=== PATIENT | female | born 1995 | race Asian ===

== ENCOUNTER → 2016-12-19 | Outpatient (CLI) | payer OTHER ==
[~2016-12-19] MED LIST: FERR-74 PO; IBUP-1773 PO; PREN1TAB86 PO
--- NOTE | 2016-12-19 17:29 | Diagnostic Imaging Report ---
EXAMINATION: OB ultrasound. INDICATION: Concern for growth restriction. FINDINGS: heart rate is 150 beats per minute. The placenta is to the left of the uterus. No placenta previa. The amniotic fluid index is 15 cm. The growth parameters are: Biparietal diameter: 37 weeks and 5 days Head circumference: 39 weeks and 5 days Abdominal circumference: 35 weeks and 2 days Femur length: 35 weeks and 1 day These average at: 37 weeks and 0 days. Based on MISA of 12/27/2016 assigned by the doctor's office, the current gestational age would be 38 weeks and 6 days. Please note that the abdominal circumference and femur length are both below 2 standard deviations at -2.24 AC and -2.44 FL. Estimated weight is 2.8 kg. Please note that MISA based on first trimester ultrasound, however, would be 12/21/2016. IMPRESSION: The abdominal circumference and the femur length are below 2 standard deviations compared to gestational age using the assigned MISA provided of 12/27/2016. Dictated by: Dictated on workstation # [id number]
== END ==
LOC: RAD 15:22
PROVIDERS: ATTEND Family Medicine
DX: Z34.82 Encounter for supervision of other normal pregnancy, second trimester (principal)
CPT/HCPCS: 76816

== ENCOUNTER 2016-12-22 16:18 | Inpatient (IN) | payer OTHER ==
[2016-12-22] VITALS (27 sets, daily range): BP systolic 104–127; BP diastolic 57–90
[~2016-12-22] VITALS: Ht 167.6 cm; Wt 70.8 kg
[2016-12-22] MEDS ORDERED: D5 LR IV SOLUTION 1,000 ML IV SCH (16:34)
[2016-12-22] MEDS ORDERED: PREN1TAB86 PO (16:36)
[2016-12-22] MEDS ORDERED: FERR-74 PO (16:37)
[2016-12-22] MEDS ORDERED: MINERAL OIL CONCENTRATE 99.9% 15 ML UDC TOP PRN (16:45)
[2016-12-22 17:52] LABS: BASOPHILS % (AUTO) 0 % (0-10); EOSINOPHILS # (AUTO) 0.1 10^3/uL (0.0-0.3); EOSINOPHILS % (AUTO) 1 % (0-10); LYMPHOCYTES # (AUTO) 2.4 X 10^3 (1.0-4.0); LYMPHOCYTES % (AUTO) 14 % (12-44); MEAN CORPUSCULAR HEMOGLOBIN 24 PG (25-34); MEAN CORPUSCULAR HGB CONC 31 G/DL (32-36); MEAN CORPUSCULAR VOLUME 78 FL (80-99); MEAN PLATELET VOLUME 10.1 FL (7.4-10.4); MONOCYTES # (AUTO) 0.8 X 10^3 (0.0-1.0); MONOCYTES % (AUTO) 5 % (0-12); NEUTROPHILS # (AUTO) 13.9 X 10^3 (1.8-7.8); NEUTROPHILS % (AUTO) 81 % (42-75); PLATELET COUNT 390 10^3/uL (130-400); RED BLOOD COUNT 3.77 10^6/uL (4.35-5.85); WHITE BLOOD COUNT 17.2 10^3/uL (4.3-11.0)
[2016-12-22] MEDS ORDERED: SUFENTA 0.6MCG/ML BUPIVA 0.125 100 ML ONE (18:20)
[2016-12-22] MEDS ORDERED: fentaNYL INJECTION 100 MCG/2 ML AMP ONE (18:22)
[2016-12-22] MEDS ORDERED: LACTATED RINGERS 1,000 ML IV ONE ×2 (18:52)
[2016-12-22] MEDS ORDERED: ONDANSETRON 4 MG/2 ML (SDV) Z0FRAN IV PRN (19:00)
[2016-12-22] MEDS ORDERED: EPIDURAL (SUFENTA 0.6MCG/ML BUPIVA 0.125%) 100 ML BAG EPI PRN (19:00)
[2016-12-22] MEDS ORDERED: NALOXONE 0.4 MG/ML 1 ML (NARCAN) VIAL IV PRN (19:00)
[2016-12-22] MEDS ORDERED: fentaNYL INJECTION 100 MCG/2 ML AMP INJ ONE (19:00)
[2016-12-22] MEDS ORDERED: OXYTOCIN/NORMAL SALINE 500 ML IV SCH (19:07)
--- NOTE | 2016-12-22 20:06 | History & Physical-OB ---
OB - Chief Complaint & HPI Date Date of Admission: Date of Admission: Dec 22, 2016 at 16:32 Chief Complaint/History OB-Reason for Admission/Chief: Rupture of Membranes Hx : 2 Hx Para: 1 Expected Date of Delivery: Dec 27, 2016 Gestational Age in Weeks: 39 Gestational Age in Days: 2 Other reason for admission: ROM at home prior to presenting to L&D. History of Labs Blood type A+ RI, Hep B/HIV/RPR negative Glucola wnl GBS neg Allergies and Home Medications Allergies Coded Allergies: No Known Drug Allergies (Unverified , 12/22/16) Home Medications Ferrous Sulfate 325 Mg Tablet, 325 MG PO DAILY, (Reported) Vit W-Ca,Fe,FA(<1 mg) 1 Each Tablet, 1 EACH PO DAILY, (Reported) OB - History Hx of Present Care: Yes Ultrasounds: Normal mid trimester US, Abnormal US findings (US 12/19/16 - normal CINDY; possible asymmetrical growth restriction w/ AC and FL 2 SD below GA) Obstetrical Complications: None Medical Complications: None Information Induced Hypertension: No Maternal Gestational Diabetes: No Hemorrhage: No Obstetrical History Hx : 2 Hx Para: 1 Hx # Term Pregnancies: 1 Number of Living Children: 1 Hx Multiple Gestation: No Hx Ectopic : No Hx Stillbirth: No Hx Induced Hypertens: Yes (pre-eclampsia w/ 1st ; IOL at 37wk; ASA tx w/ current ) Hx Maternal Gestational Diabet: No Hx Hemorrhage: No Delivery History Hx Dystocia: No Hx Forceps Assisted Delivery: No Hx Vacuum Extraction Assisted: No Hx Placenta Abnormality: No Hx Distress: No Hx Large For Gestational Age I: No Hx Small for Gestational Age I: No Hx Section: No Hx Vaginal Delivery Post C-Sec: No Hx Blood Disorders: No Adverse Rxn to Tranfusion: No Patient Past Medical History hx of pre-eclampsia w/ first Social History/Family History HIV/AIDS: No Recent Infectious Disease Expo: No Sexually Transmitted Disease: No Alcohol Use: Denies Use Recreational Drug Use: No Immunizations Tetanus Booster (TDap): Less than 5yrs (10/25/16) Rubella: immune RPR/VDRL: Negative GBS Status: Negative HBsAG: Negative OB - Admission Exam Physical Exam Vitals: Vital Signs 12/22/16 12/22/16 16:45 19:00 Temp 98.6 Pulse 113 Resp 20 B/P (MAP) 123/70 Pulse Ox 99 O2 Delivery Room Air Abdomen: Gravid Cervical Dilatation: 4cm Effacement: 75% Station: -2 Membranes: Ruptured Amniotic Fluid: Thin Meconium Accelerations: Accelerations Present Contractions on Admission: < 5 Minutes Apart Intensity: Mild Labs Laboratory Tests Test 12/22/16 17:35 Range/Units White Blood Count 17.2 H 4.3-11.0 10^3/uL Red Blood Count 3.77 L 4.35-5.85 10^6/uL Hemoglobin 9.1 L 11.5-16.0 G/DL Hematocrit 29 L 35-52 % Mean Corpuscular Volume 78 L 80-99 FL Mean Corpuscular Hemoglobin 24 L 25-34 PG Mean Corpuscular Hemoglobin Concent 31 L 32-36 G/DL Red Cell Distribution Width 15.0 H 10.0-14.5 % Platelet Count 390 130-400 10^3/uL Mean Platelet Volume 10.1 7.4-10.4 FL Neutrophils (%) (Auto) 81 H 42-75 % Lymphocytes (%) (Auto) 14 12-44 % Monocytes (%) (Auto) 5 0-12 % Eosinophils (%) (Auto) 1 0-10 % Basophils (%) (Auto) 0 0-10 % Neutrophils # (Auto) 13.9 H 1.8-7.8 X 10^3 Lymphocytes # (Auto) 2.4 1.0-4.0 X 10^3 Monocytes # (Auto) 0.8 0.0-1.0 X 10^3 Eosinophils # (Auto) 0.1 0.0-0.3 10^3/uL Basophils # (Auto) 0.0 0.0-0.1 10^3/uL OB - Assessment/Plan/Diagnosis Assessment Assessment: rupture of membranes Plan Plan: Expectant Management (augment w/ Pitocin if necessary) PORSHA LANE DO Dec 22, 2016 20:06
[2016-12-22] MEDS ORDERED: CATHETER FLUSH 10 ML SYR IV SCH (22:00)
[2016-12-23] VITALS (17 sets, daily range): BP systolic 97–121; BP diastolic 57–74
--- NOTE | 2016-12-23 01:24 | OB Labor & Delivery Record ---
L&D History Date of Service Date of Service: Dec 23, 2016 History Expected Date of Delivery: Dec 27, 2016 Gestational Age in Weeks: 39 Hx : 2 Hx Para: 1 Complications Events: Routine care Operative Indications (Cesarea: N/A-Vaginal Delivery Intrapartal Events: None L&D Stage1 Monitors and Tracing Monitor Mode: External Heart Rate: 145 Monitor Accelerations: Uniform Monitor Decelerations: Variable Presentation: Vertex Vital Signs VS - Last 72 Hours, by Label 12/22/16 12/22/16 12/22/16 12/22/16 16:45 17:15 17:30 17:45 Temp 98.6 Pulse 97 94 96 93 Resp 20 20 20 20 B/P (MAP) 116/65 110/69 114/62 117/60 Pulse Ox 97 12/22/16 12/22/16 12/22/16 12/22/16 18:00 18:15 18:30 18:45 Pulse 93 104 106 Resp 20 20 20 20 B/P (MAP) 117/60 117/64 117/63 Pulse Ox 100 98 O2 Delivery Room Air Room Air 12/22/16 12/22/16 12/22/16 12/22/16 19:00 19:15 19:30 19:45 Temp 97.8 Pulse 113 100 99 105 Resp 20 20 20 18 B/P (MAP) 123/70 124/90 117/70 121/70 Pulse Ox 99 98 99 99 O2 Delivery Room Air Room Air Room Air Room Air 12/22/16 12/22/16 12/22/16 12/22/16 20:00 20:15 20:30 20:45 Pulse 107 107 103 99 Resp 18 18 18 18 B/P (MAP) 127/71 118/62 108/66 109/67 Pulse Ox 100 99 99 98 O2 Delivery Room Air Room Air Room Air Room Air 12/22/16 12/22/16 12/22/16 12/22/16 21:00 21:15 21:30 21:45 Temp 98.8 Pulse 96 101 101 105 Resp 18 18 18 18 B/P (MAP) 105/64 127/65 107/61 104/58 Pulse Ox 98 100 97 97 O2 Delivery Room Air Room Air Room Air Room Air 12/22/16 22:00 Temp 99.6 Pulse 111 Resp 18 B/P (MAP) 113/66 Pulse Ox 96 O2 Delivery Room Air Rupture of Membranes Spontaneous Ruture of Membrane: Yes Amniotic Membrane Rupture Time: 1400 Amniotic Membrane Fluid Desc.: Meconium Stained Induction/Anesthesia Epidural Cath Placement - Time: 1833 L&D Stage2 Stage Two Stage II Date: Dec 23, 2016 Stage II Time: 00:52 Stage II Duration: 6 min Monitors and Tracing Monitor Mode: External Heart Rate: 145 Position: Right Occiput Anterior Presentation: Vertex Cord Descript/Complications Complications Nuchal cord x1, body cord Delivery Type Infant Delivery Method: Spontaneous Vaginal Anterior Shoulder: Left Episiotomy/Perineal Laceration Episiotomy Description: Periurethral Extnsion/lac (no repair) Condition of Infant Delivery Delivery Date & Time: 12/23/16 0058 1 minute Comment: 8 5 minute Comment: 9 Condition of Condition of : Living Exam: No Observed Abnormalities Baby Girl, vigorous at w/ spontaneous cry Resuscitation Resuscitation: N/A - Spontaneous Resp L&D Stage3 Stage Three Stage III Date: Dec 23, 2016 Stage III Time: 01:05 Stage III Duration: 7 min Pictocin Pitocin Administration mu/min: 6 Pitocin ml/hr: 6 Pitocin Administration Comment: pitocin started after delivery of the placenta Placenta Delivery Placenta Delivery: Spontaneous Delivery Summary Summary Vaginal blood loss >500ml: No 150mL Attending at delivery: Gordy Condition of Delivery Examined: Cervix Examined Condition of Mother Doing well after delivery Condition of Infant (s) Doing well after delivery PORSHA LANE DO Dec 23, 2016 01:24
[2016-12-23] MEDS ORDERED: OXYTOCIN/NORMAL SALINE 500 ML IV SCH (01:40)
[2016-12-23] MEDS ORDERED: BENZOCAINE/MENTHOL (DERMOPLAST) 56 ML CAN TP PRN (01:45)
[2016-12-23] MEDS ORDERED: WITCH HAZEL(TUCKS) 40 EA JAR TOP PRN (01:45)
[2016-12-23] MEDS: IBUPROFEN 600 MG (MOTRIN) TAB PO SCH ×4 (04:33→23:04)
[2016-12-23] MEDS ORDERED: CATHETER FLUSH 10 ML SYR IV SCH (06:00)
[2016-12-23] MEDS: FERROUS SULF 325 MG (IRON) TAB PO SCH (08:25)
--- NOTE | 2016-12-23 09:48 | Anesthesia-Regional Post-Op ---
Regional Patient Condition Mental Status: Alert, Oriented x3 Circulation: Same as Pre-Op Headache: Absent Sensation: Full Recovery Motor Block: Absent Post Op Complications Complications None Follow Up Care/Instructions Patient Instructions None needed. Anesthesia/Patient Condition Patient is doing well, no complaints, stable vital signs, no apparent adverse anesthesia problems. No complications reported per nursing. PJ CHRISTINE CRNA Dec 23, 2016 09:48
[2016-12-24 05:29] VITALS: BP 98/64
[2016-12-24] MEDS: IBUPROFEN 600 MG (MOTRIN) TAB PO SCH ×3 (05:29→17:10)
[2016-12-24 06:58] LABS: BASOPHILS # (AUTO) 0.1 10^3/uL (0.0-0.1); BASOPHILS % (AUTO) 0 % (0-10); EOSINOPHILS # (AUTO) 0.2 10^3/uL (0.0-0.3); EOSINOPHILS % (AUTO) 2 % (0-10); LYMPHOCYTES # (AUTO) 4.1 X 10^3 (1.0-4.0); LYMPHOCYTES % (AUTO) 29 % (12-44); MEAN CORPUSCULAR HEMOGLOBIN 24 PG (25-34); MEAN CORPUSCULAR HGB CONC 30 G/DL (32-36); MEAN CORPUSCULAR VOLUME 79 FL (80-99); MEAN PLATELET VOLUME 9.6 FL (7.4-10.4); MONOCYTES % (AUTO) 7 % (0-12); NEUTROPHILS % (AUTO) 62 % (42-75); PLATELET COUNT 398 10^3/uL (130-400); RED BLOOD COUNT 3.33 10^6/uL (4.35-5.85); RED CELL DISTRIBUTION WIDTH 15.1 % (10.0-14.5); WHITE BLOOD COUNT 14.5 10^3/uL (4.3-11.0)
[2016-12-24] MEDS: FERROUS SULF 325 MG (IRON) TAB PO SCH (08:40)
[2016-12-24 10:35] VITALS: BP 105/72
[2016-12-24] MEDS ORDERED: IBUP-1773 PO (11:21)
--- NOTE | 2016-12-24 11:22 | Discharge Instructions ---
Discharge Inst-Women's Serv Depart Medications New, Converted or Re-Newed RX: Call to Patients Pharmacy (or may use over the counter) New Medications: Ibuprofen (Ibuprofen) 600 Mg Tablet 600 MG PO Q6H PRN for CRAMPS, #90 TAB Continued Medications: Ferrous Sulfate (Ferrous Sulfate) 325 Mg Tablet 325 MG PO DAILY, TAB Vit W-Ca,Fe,FA(<1 mg) ( Vitamins) 1 Each Tablet 1 EACH PO DAILY, TAB Follow Up/Instructions Goal/Follow Up: Follow-up with Dr. Moreno in 6 weeks. Activity Activity: Activity as Tolerated Nothing Inside Vagina: No Douching, No Ken Caryl, No Tampons Diet Discharge Diet: No Restrictions Symptoms to Report to : Bleeding Excessive, Pain Increased, Fever Over 101 Degrees F, Vaginal Bleeding Increase, Vaginal Discharge Foul, Shortness of Breath For Any Problems or Questions: Contact Your Physician PORSHA LANE DO Dec 24, 2016 11:22
--- NOTE | 2016-12-24 11:24 | Discharge Summary ---
Diagnosis/Chief Complaint Date of Admission Dec 22, 2016 at 16:32 Date of Discharge Dec 24, 2016 Admission Diagnosis Admission Diagnosis 1. at 39w2d w/ SROM Discharge Diagnosis 1. at 39w2d w/ SROM s/p 12/23/16 Discharge Summary-OBS Procedures None. Discharge Physical Examination Allergies: Coded Allergies: No Known Drug Allergies (Unverified , 12/22/16) Vitals & I&Os Vital Sign - Last 12Hours Date Time Temp Pulse Resp B/P (MAP) Pulse Ox O2 Delivery O2 Flow Rate FiO2 12/24/16 10:35 97.0 76 16 105/72 Room Air 12/24/16 05:29 98 General Appearance: Alert, Oriented X3, Cooperative Psych/Mental Status: Mood NL Hospital Course Routine course Labs Laboratory Tests 12/24/16 06:50: White Blood Count 14.5H, Red Blood Count 3.33L, Hemoglobin 8.0L, Hematocrit 26L , Mean Corpuscular Volume 79L, Mean Corpuscular Hemoglobin 24L, Mean Corpuscular Hemoglobin Concent 30L, Red Cell Distribution Width 15.1H, Platelet Count 398, Mean Platelet Volume 9.6, Neutrophils (%) (Auto) 62, Lymphocytes (%) (Auto) 29, Monocytes (%) (Auto) 7, Eosinophils (%) (Auto) 2, Basophils (%) (Auto ) 0, Neutrophils # (Auto) 9.0H, Lymphocytes # (Auto) 4.1H, Monocytes # (Auto) 1.0, Eosinophils # (Auto) 0.2, Basophils # (Auto) 0.1 Discharge Instructions to patient/family Please see electonic discharge instructions given to patient. Discharge Medications Reviewed and agree with Discharge Medication list on patient's Discharge Instruction sheet Clinical Quality Measures DVT/VTE Risk/Contraindication: Risk Factor Score Per Nursin RFS Level Per Nursing on Admit: 2=Moderate PORSHA LANE DO Dec 24, 2016 11:24
[2016-12-24 14:30] VITALS: BP 101/69
[2016-12-24 21:00] VITALS: BP 112/72
== END 2016-12-24 21:10 | disposition home or self-care (01) | DRG 775 ==
LOC: LDRP 16:18 → WSo 16:18 → LDRP 16:32
PROVIDERS: ADMIT Family Medicine; ATTEND Family Medicine
PROC: 10E0XZZ Delivery of Products of Conception, External Approach (ICD-10-PCS; principal; 2016-12-23)
DX: O77.0 Labor and delivery complicated by meconium in amniotic fluid (principal); O69.81X0 Labor and delivery complicated by cord around neck, without compression, not applicable or unspecified; Z3A.39 39 weeks gestation of pregnancy; Z37.0 Single live birth
CPT/HCPCS: 36415; 85025; 86850; 86900; 86901; 99212